=== PATIENT | female | born 1935 | race Caucasian/White ===

== ENCOUNTER 2022-02-28 10:40 | Outpatient (REF) | payer MEDICAID, SELFPAY ==
--- NOTE | 2022-02-28 13:34 | MHC.AU.ANR ---
Adult Audiological Evaluation Date of Visit: 02/28/22 Gum Worker Used: Patient's daughter provided Citizen [place] interpretation Reason for Appointment: Patient's family has been noticing increasing hearing difficulties which are impacting daily communication. Patient does not feel she has hearing loss. Has hearing been tested previously?: No Ear History: Ear Deformity: None Reported Recent Ear Drainage: None Reported Recent Ear Pain: None Reported Recent Ear Infections: None Reported Ear Infections in Childhood: None Reported History of Ear Wax Buildup: Both Ears Previous Ear Surgery: None Reported Bothersome Tinnitus/Ringing/Noises in Ears: None Reported Blocked/Full Sensation in Ear(s): None Reported History of occupational noise exposure?: No History: No Medical History: Medical History: Hypertension, Vascular Dementia Otoscopy: Right Ear: Partially occluded with cerumen Left Ear: Partially occluded with cerumen Tympanometry: Tympanometry performed due to: To determine if cerumen blockage is fully occluding canal(s) Right Ear: Normal Middle Ear System (Type A) Left Ear: Negative Middle Ear Pressure (Type C) Hearing Evaluation: Transducer(s) Used: Circumaural Headphones Method: Conventional Audiometry Stimuli Used: Pure Tones Right Ear: Description of Hearing: Severe rising to moderate and sloping to profound sensorineural hearing loss Left Ear: Description of Hearing: Severe rising to moderate and sloping to profound sensorineural hearing loss Speech Recognition Threshold (SRT): Method Used: Recorded Lists Stimuli Used: Citizen [place] Trisyllable Words Right Ear: 60 dBHL Left Ear: 55 dBHL Word Discrimination: Method: Recorded Lists Word Lists Used: Lista Bisil?bica (Citizen [place]) Right Ear: 100% at 90 dBHL Left Ear: 100% at 90 dBHL Interpretation of Results: Patient presents with severe rising to moderate and sloping to profound sensorineural hearing loss bilaterally. This degree of hearing loss can be expected to have a significant impact on daily communication. She likely does not understand most speech at [id number] conversational volumes, especially if the conversation partner's face is not visible or they are at a distance. She is a candidate for hearing aids. Recommendations: Audiological re-evaluation in one year. See Hearing Aid Evaluation report for more information. Patient has a history of cerumen build-up. There was non-occluding cerumen in her ears today. Removal was attempted, but the cerumen was hardened and adhered to the canal wall. The tympanic membrane was still visible on both sides; therefore, the cerumen did not interfere with testing today. Regular use of wax softening drops, such as EarWaxMD or Debrox, is recommended to soften the current cerumen and prevent future occlusions. Diagnosis: Primary Diagnosis: H90.3 Bilateral Sensorineural Hearing Loss Signature: Provider: Yohannes Alcazar, CCC-A
--- NOTE | 2022-02-28 13:35 | MHC.AU.MED ---
Medical Clearance for Hearing Instrumentation Date: 02/28/22 Patient Name: Chanelle Gonzalez Date of : 1935 Referring Provider: Maryana Tracy MD We have seen your patient on 02/28/22 and have determined that they are a candidate for amplification (See accompanying report). Specifically, they would benefit from: Hearing aid use in both ears There is a statute that addresses Medical Evaluation Requirements prior to fitting a patient with a hearing aid. According to [place] statute 265 CMR:6.03(1), (a) General. Except as provided in 265 CMR 6.03(1)(b), a cloth shearing supervisor shall not sell a hearing aid unless the prospective user has presented to the cloth shearing supervisor a written statement signed by a licensed physician that states that the patient's hearing loss has been medically evaluated and the patient may be considered a candidate for a hearing aid. The medical evaluation must have taken place within the preceding six months. Please note: Due to the [place] Statute referenced above, we cannot accept a signature other than that of a licensed physician. STICK PULLER and PA signatures cannot be accepted. I am in agreement with the above recommendation. There is no medical contraindication for hearing instrumentation. Physician Signature Date Physician Name (Printed)
--- NOTE | 2022-02-28 13:36 | MHC.AU.HAS ---
Hearing Aid Evaluation Date of Visit: 02/28/22 Kicking Machine Operator Used: Patient's daughter provided Polish interpretation Historical Information: Description of Hearing: Severe rising to moderate and sloping to profound sensorineural hearing loss bilaterally Summary: Patient was seen for audiological evaluation (see separate report for details). Patient is a candidate for hearing aids. Her daughter was unsure how well the patient would tolerate hearing aids, as she has sensory sensitives, especially for tactile and auditory stimuli. For example, she will plug her ears with tissues at nighttime to reduce environmental sounds. She also had very reduced tolerance for the circumaural headphones used during testing today. A demo was performed with a pair of [employer] P-13T trial instruments with 1M receivers and small power domes. Patient tolerated the feel of the hearing aids on/in her ears. She felt 100% target was painful. Lowered until patient felt sound was comfortable, at 75% target. Patient reported she could hear better with the hearing aids on. Discussed that 75% is fairly low, and given her sensitivities, we would likely use the automatic settings to slowly and gradually increase the volume over a long period of time to increase her tolerance and provide more gain. Patient is travelling to [place] at the end of the month. She is unsure of how long she will be staying, but it likely will be until the end of summer. The hearing aids will not be ordered until the patient returns. Hearing Aid Prescription: Based on the individual?s shared listening needs, communication environments, dexterity, desire for connectivity, and personal preferences, the following prescription for amplification has been made: Right ear: Oven Dauber: [employer] Model: Audeo P70-R Battery Size: Rechargeable Color: P4 Gas Operator: 1M Type of Dome: Small Power Left ear: Oven Dauber: Phonak Model: Audeo P70-R Battery Size: Rechargeable Color: P4 Gas Operator: 1M Type of Dome: Small Power Action Taken/Action Needed: Medical Clearance to be requested from PCP/ENT It is recommended that the patient's family call our clinic when the patient is set to return. The hearing aids will be ordered after hearing from the family. Primary Diagnosis: H90.3 Bilateral Sensorineural Hearing Loss Signature: Provider: Yohannes Alcazar, ANTHONY-A
== END 2022-02-28 10:41 | disposition home or self-care (01) ==
LOC: HO.SH 10:40
PROVIDERS: Visit Provider Family Medicine
DX: Z01.118 Encounter for examination of ears and hearing with other abnormal findings (principal); H90.3 Sensorineural hearing loss, bilateral
CPT/HCPCS: 92557; 92567; 92591